=== PATIENT | male | born 1945 | race Hispanic/Latino ===

== ENCOUNTER → 2018-10-16 | Outpatient (CLI) | payer OTHER ==
[~2018-10-16] MED LIST: CEPH500C2 PO; HYDR-4060 PO; METO-408 PO; SIMV10TA6 PO; TAMS0.4C32 PO; TRAM50TA4 PO
== END | disposition home or self-care (01) ==
LOC: RAH 12:35
PROVIDERS: ATTEND Family Medicine
DX: E04.1 Nontoxic single thyroid nodule (principal)
CPT/HCPCS: 76536

== ENCOUNTER → 2019-11-04 | Outpatient (CLI) | payer OTHER ==
[~2019-11-04] MED LIST changes: -SIMV10TA6 PO; +SIMV10TA97 PO
== END | disposition home or self-care (01) ==
LOC: RAH 10:59
PROVIDERS: ATTEND Family Medicine
DX: E04.2 Nontoxic multinodular goiter (principal); E03.9 Hypothyroidism, unspecified
CPT/HCPCS: 76536

== ENCOUNTER 2019-12-05 07:56 | Day surgery (SDC) | payer OTHER ==
[2019-12-03 11:51] LABS: BASOPHILS % (AUTO) 0.4 % (0.0-5.0); EOSINOPHILS % (AUTO) 2.5 % (0.0-8.0); HEMATOCRIT 42.2 % (42-54); LYMPHOCYTES % (AUTO) 38.7 % (21.0-51.0); MEAN CORPUSCULAR HEMOGLOBIN 27.9 pg (27.0-33.0); MEAN CORPUSCULAR HGB CONC 31.8 g/dL (32.0-36.0); MEAN CORPUSCULAR VOLUME 87.7 fL (79-99); MONOCYTES % (AUTO) 6.9 % (3.0-13.0); NEUTROPHILS % (AUTO) 51.3 % (40.0-77.0); PLATELET COUNT (AUTO) 203 K/uL (130-400); RED BLOOD CELL COUNT(AUTO) 4.81 MIL/uL (4.50-6.20); RED CELL DISTRIBUTION WIDTH 14.5 % (11.0-15.5); WHITE BLOOD COUNT (AUTO) 5.7 K/uL (4.8-10.8)
[2019-12-03 12:01] LABS: CREATININE 1.1 mg/dL (0.5-1.5); POTASSIUM 4.2 mmol/L (3.5-5.1)
[2019-12-03 12:27] VITALS: BP 140/71
[2019-12-05] VITALS (16 sets, daily range): BP systolic 128–146; BP diastolic 76–87
[~2019-12-05] VITALS: Ht 168.9 cm; Wt 72.8 kg
[~2019-12-05 07:56] MED LIST changes: -CEPH500C2 PO; -HYDR-4060 PO; -TAMS0.4C32 PO; -TRAM50TA4 PO
--- NOTE | 2019-12-05 08:25 | NUR ---
POTENTIAL FOR INFECTION: ENTIRE ABDOMEN SHAVED PER ARIELLE LOPEZ.
[2019-12-05] MEDS: CEFAZOLIN SODIUM 1 GM VIAL IVP SCH ×2 (09:00→09:35)
[2019-12-05] MEDS ORDERED: LACTATED RINGERS 1000ML 1,000 ML IV ONE (09:03)
[2019-12-05] MEDS ORDERED: PROPOFOL 10 MG/ML 20ML VIAL IV ONE (09:15)
[2019-12-05] MEDS ORDERED: LIDOCAINE PF 2% 5ML ABBOJECT ONE (09:15)
[2019-12-05] MEDS ORDERED: FENTANYL CITRATE PF 50 MCG/1 ML 2ML VIAL ONE ×2 (09:15→09:52)
[2019-12-05] MEDS ORDERED: LEVO25TA54 PO (09:27)
[2019-12-05] MEDS ORDERED: EPHEDRINE SULFATE 50 MG/ML AMPULE ONE (09:34)
[2019-12-05] MEDS ORDERED: BUPIVACAINE/PF 0.25% 30ML VIAL IJ ONE (09:44)
[2019-12-05] MEDS ORDERED: ROCURONIUM 10MG/1ML SYR 10 MG/ML ML ONE (10:00)
[2019-12-05] MEDS ORDERED: ONDANSETRON HCL 4 MG/2 ML VIAL ONE (10:11)
--- NOTE | 2019-12-05 11:30 | NUR ---
RECEIVE PT RECEIVED FROM PACU VIA STRETCHER AWAKE ALERT ORIENTED X3. PT STABLE. DENIES PAIN. DRESSING TO MID ABDOMEN DRY AND INTACT, NO OOZING NOTED, ABDOMEN SOFT, ABDOMINAL BINDER IN PLACE. PER PACU NURSE MARC, PT CAME BACK TO PACU WITH ABD BINDER ON. WILL CONTINUE TO MONITOR PT, CALL [facility] WITHIN REACH. WILL CALL TO COME IN.
--- NOTE | 2019-12-05 12:15 | NUR ---
PT MEETS CRITERIA FOR DISCHARGE, WAITING FOR RIDE HOME.
--- NOTE | 2019-12-05 12:30 | NUR ---
DISCHARGE RIDE HERE. PT DISCHARGED VIA WHEELCHAIR WITH AND FAMILY MEMBER. PT STABLE. NO COMPLAINTS MADE. ABDOMEN REMAINS SOFT, DRESSING DRY AND INTACT, NO OOZING NOTED, ABDOMINAL BINDER IN PLACE. DISCHARGE INSTRUCITONS GIVEN TO AND PT, VERBALIZED UNDERSTANDING.
== END 2019-12-05 12:30 | disposition home or self-care (01) ==
LOC: DAH 07:56
PROVIDERS: ATTEND Surgery
DX: K43.2 Incisional hernia without obstruction or gangrene (principal); I10 Essential (primary) hypertension; E78.5 Hyperlipidemia, unspecified; K21.9 Gastro-esophageal reflux disease without esophagitis; Z98.890 Other specified postprocedural states; Z79.899 Other long term (current) drug therapy; Z87.891 Personal history of nicotine dependence; Z85.46 Personal history of malignant neoplasm of prostate; Z82.49 Family history of ischemic heart disease and other diseases of the circulatory system; Z83.3 Family history of diabetes mellitus
CPT/HCPCS: 36415; 49560; 49568; 80048; 85025; 93005; A4213; A4215; A4221; A4222; A4223; A4450; A4452; A4606; A4663; A4930; C1781; J0690; J2001; J2405; J2704; J3010 ×2; J3490 ×2; J7120

== ENCOUNTER 2021-07-07 11:07 | Emergency (ER) | payer OTHER ==
[~2021-07-07] VITALS: Ht 170.2 cm; Wt 77.1 kg
[~2021-07-07 11:07] MED LIST changes: +LEVO25TA54 PO
[2021-07-07 11:43] VITALS: BP 147/90
[2021-07-07] MEDS ORDERED: KETOROLAC 15MG/ML VIAL (15MG/ML) IV ONE (12:00)
[2021-07-07] MEDS ORDERED: ONDANSETRON 4MG INJ IVP ONE (12:00)
[2021-07-07] MEDS ORDERED: MORPHINE 4 MG SYG IV ONE (12:00)
[2021-07-07] MEDS ORDERED: ONDANSETRON 4MG INJ ONE (12:01)
[2021-07-07] MEDS ORDERED: KETOROLAC 15MG/ML VIAL (15MG/ML) ONE (12:01)
[2021-07-07 12:02] LABS: BASOPHILS % (AUTO) 0.1 % (0.0-5.0); EOSINOPHILS % (AUTO) 0.2 % (0.0-8.0); HEMATOCRIT 44.5 % (42-54); LYMPHOCYTES % (AUTO) 17.6 % (21.0-51.0); MEAN CORPUSCULAR HEMOGLOBIN 27.9 pg (27.0-33.0); MEAN CORPUSCULAR HGB CONC 32.1 g/dL (32.0-36.0); MEAN CORPUSCULAR VOLUME 86.7 fL (79-99); MONOCYTES % (AUTO) 5.2 % (3.0-13.0); NEUTROPHILS % (AUTO) 76.6 % (40.0-77.0); PLATELET COUNT (AUTO) 184 K/uL (130-400); RED BLOOD CELL COUNT(AUTO) 5.13 MIL/uL (4.50-6.20); RED CELL DISTRIBUTION WIDTH 14.6 % (11.0-15.5); WHITE BLOOD COUNT (AUTO) 9.8 K/uL (4.8-10.8)
[2021-07-07] MEDS ORDERED: MORPHINE 4 MG SYG ONE (12:02)
[2021-07-07 12:11] LABS: CREATININE 1.4 mg/dL (0.5-1.5); POTASSIUM 4.2 mmol/L (3.5-5.1)
[2021-07-07 12:16] LABS: ALBUMIN 4.2 g/dL (3.5-5.0); BILIRUBIN,TOTAL 0.9 mg/dL (0.2-1.0); TOTAL PROTEIN, SERUM 8.5 g/dL (6.0-8.3)
[2021-07-07 15:42] LABS: APPEARANCE,URINE Cloudy (CLEAR); BILIRUBIN,URINE Negative (NEGATIVE); COLOR,URINE Dark Yellow (YELLOW); GLUCOSE, URINE (UA) Negative (NEGATIVE); KETONES,URINE 15 mg/dL (NEGATIVE); LEUKOCYTE ESTERASE ,URINE Negative (NEGATIVE); NITRATE,URINE Negative (NEGATIVE); OCCULT BLOOD,URINE Large (NEGATIVE); PROTEIN,URINE Trace mg/dL (NEGATIVE)
[2021-07-07 15:50] LABS: BACTERIA,URINE Few /HPF (None Seen); SQUAMOUS EPITHELIAL CELL,UR Rare /HPF (0-2); WBC,URINE 0-1 /HPF (0-1)
[2021-07-07 15:51] LABS: MUCUS,URINE Moderate LPF (None Seen)
[2021-07-07 15:52] VITALS: BP 143/72
[2021-07-07 15:52] LABS: OTHER CRYSTALS,URINE AMMONIUM BIURATES 1+ /LPF (None Seen)
[2021-07-07 15:53] LABS: HYALINE CASTS, URINE 0-1 /LPF (0-1 /LPF)
[2021-07-07] MEDS ORDERED: TAMS-1 PO (16:58)
[2021-07-07] MEDS ORDERED: ONDA8TAB12 PO (16:59)
== END 2021-07-07 17:16 | disposition home or self-care (01) ==
LOC: EDH 11:07
DX: N20.1 Calculus of ureter (principal); I10 Essential (primary) hypertension; E11.9 Type 2 diabetes mellitus without complications; E03.9 Hypothyroidism, unspecified; E78.5 Hyperlipidemia, unspecified; Z79.899 Other long term (current) drug therapy; Z85.46 Personal history of malignant neoplasm of prostate
CPT/HCPCS: 36415; 74176; 80053; 81001; 85025; 96374; 96375; 99284; J1885; J2270; J2405